=== PATIENT | female | born 1955 | race Caucasian/White ===

== ENCOUNTER 2022-09-28 08:08 | Day surgery (SDC) | payer OTHER, SELFPAY ==
[2022-09-28 08:53] VITALS: BMI 34.9
[2022-09-28 09:08] VITALS: BP 127/73; PULSE 72; RESP 16; TEMP 37.3; O2SAT 97
[2022-09-28] MEDS: LACTATED RINGERS 1,000 ML 150 ML IV (09:12)
--- NOTE | 2022-09-28 09:32 | PM.HP.1 ---
History of Present Illness History of Present Illness Date Patient Seen: 09/28/22 Time Patient Seen: 09:32 Chief complaint: Colonoscopy Narrative: H/o colon polyps, last scope was in [place] 5+ yrs ago. No symptoms. [facility] Medical History Arthritis Constipation Hypercholesteremia Trigger finger of left thumb Surgical History History of carpal tunnel surgery of left wrist History of tonsillectomy Status post epidural steroid injection Social History household members: spouse Smoking Status: Never smoker alcohol intake: current Meds Home Medications and Allergies Home Medications Medication Instructions Recorded Confirmed Type ascorbic acid (vitamin C) 1,000 mg 1,000 mg PO DAILY 09/28/22 09/28/22 History tablet (Vitamin C) calcium carbonate 600 mg-vitamin 1 tab PO BID 09/28/22 09/28/22 History D3 5 mcg (200 unit) tablet cholecalciferol (vitamin D3) 100 1,000 unit PO DAILY 09/28/22 09/28/22 History mcg (4,000 unit) capsule multivitamin 1 tab PO QAM 09/28/22 09/28/22 History omega-3 fatty acids 1,000 mg PO DAILY 09/28/22 09/28/22 History turmeric 400 mg capsule 1,000 mg PO 09/28/22 History vitamin B complex 1 tab PO DAILY 09/28/22 09/28/22 History Allergies Allergy/AdvReac Type Severity Reaction Status Date / Time No Known Drug Allergies Allergy Verified 09/28/22 08:47 Review of Systems Review of Systems ROS: Yes All systems reviewed with the patient and are negative except as otherwise documented Exam Vital Signs (past 8 hours): - 09/28/22 09:08 Temperature 99.1 F Pulse Rate 72 Respiratory Rate 16 Blood Pressure 127/73 Pulse Oximetry 97 Oxygen Delivery Method Room Air Oxygen Delivery Method Room Air Const General: cooperative and healthy appearing Nutritional Appearance: well nourished [facility] Head: normocephalic and atraumatic Ears: hearing grossly normal bilaterally Eyes General: appearance normal, both eyes and all related structures Sclera: sclerae normal Neck Neck: trachea midline Resp Effort & Inspection: normal respiratory effort and able to speak in complete sentences Cardio Rate: regular rate Rhythm: regular rhythm GI Palpation: soft Skin General: turgor normal Neuro General: patient alert, patient awake and patient oriented x3 Speech: speech normal Psych Mental Status: mental status grossly normal Affect: normal affect Judgment: judgment good Assessment & Plan Assessment & Plan narrative: H/o colon polyps, surveillance with colonoscopy under MAC Time Spent With Patient Time with patient: less than 30 minutes
[2022-09-28 09:59] VITALS: BP 145/76; PULSE 77; RESP 14; TEMP 36.7; O2SAT 94
--- NOTE | 2022-09-28 10:02 | PM.OP.COLON ---
Operative Date/Time/Diagnoses Date of procedure: 09/28/22 Time of procedure: 10:02 Pre-op diagnosis: History of colon polyps. Post-op diagnosis: same Procedure & Clinicians Study performed: Colonoscopy using MAC Same procedure as scheduled: Yes Indications: History of colon polyps Surgeon: Tricia Conde Procedure Notes Procedure in detail: Preop diagnosis: History of colon polyps. Postop diagnosis: Same Operative procedure: Colonoscopy using MAC Surgeon: Jessenia Conde MD Findings: Diverticulosis of the descending colon small and scattered. No polyps identified. Grade 2 hemorrhoids, internal. External hemorrhoidal tags Procedure: Patient placed in lateral position. Rectal exam performed showing normal tone no masses. Colonoscope was inserted into rectum advanced to ileocecal valve with minimal difficulty. Insufflation and extraction of the scope and the above findings. Retroflex was included in the rectum Impression: Diverticulosis of descending colon. No polyps identified. Plan: Repeat colonoscopy in 5 years due to history of colon polyps Findings: divertiulosis Specimen(s): none sent Complications: none Post-procedure Recommendations: Colonoscopy in 5 years Follow up: as needed Disposition: PACU
[2022-09-28 10:05] VITALS: BP 100/75; PULSE 78; RESP 22; O2SAT 97
[2022-09-28 10:09] VITALS: BP 117/72; PULSE 85; RESP 16; O2SAT 96
--- NOTE | 2022-09-28 10:25 | SUR.PHASEII ---
DC to home with via WC. all bleongings with patient
== END 2022-09-28 10:26 | disposition home or self-care (01) ==
PROVIDERS: PCP Internal Medicine; Referring Provider Surgery; Visit Provider Surgery
PROC: 0DJD8ZZ Inspection of Lower Intestinal Tract, Via Natural or Artificial Opening Endoscopic (ICD-10-PCS; CPT 45378; principal; 2022-09-28 09:45)
DX: Z12.11 Encounter for screening for malignant neoplasm of colon (principal); Z86.010 Personal history of colon polyps; K57.30 Diverticulosis of large intestine without perforation or abscess without bleeding; K64.1 Second degree hemorrhoids
CPT/HCPCS: 45378; J2704